=== PATIENT | male | born 1940 | race Caucasian/White ===

== ENCOUNTER 2016-09-16 19:29 | Emergency (ER) | payer OTHER ==
[~2016-09-16] VITALS: Ht 180.3 cm; Wt 81.1 kg
[~2016-09-16 19:29] MED LIST: ASPIRIN E.C.81 M1 PO; ATACAND8 MG PO; BLACK CHERRY CONCENT; Ginkgo Biloba PO; KOREAN PANAX GINSENG; Saw Palmetto PO; THERAGRAN1 TABLET PO; ZYLOPRIM100 MG PO
[2016-09-16 20:47] LABS: HEMATOCRIT 36.5 % (38.0-50.0); MCH 32.1 PG (29.0-34.0); MCHC 35.6 G/DL (30.0-36.0); MCV 90.1 FL (86-99); MEAN PLAT.VOLUME 9.1 uM^3 (9.0-12.4); PLATELET COUNT 159 K/uL (156-360); RBC DIS.WIDTH-CV 12.9 % (11.8-14.6); RBC DIS.WIDTH-SD 42.6 % (39-53); RED BLOOD COUNT 4.05 M/uL (4.00-5.50); WHITE BLOOD COUNT 15.4 K/uL (4.1-10.2)
[2016-09-16 21:11] LABS: CHLORIDE 109 mEq/L (99-109); POTASSIUM 4.5 mEq/L (3.7-5.4); SODIUM 137 mEq/L (136-147)
[2016-09-16 21:13] LABS: GLUCOSE 143 mg/dL (70-99)
[2016-09-16 21:15] LABS: ANION GAP 11 MEQ/L (2-14); TOTAL BILIRUBIN 0.7 mg/dL (0.0-1.0)
[2016-09-16 21:17] LABS: ALKALINE PHOSPHATASE 52 IU/L (3-129); GFR ESTIMATE (CALCULATED) 33 mL/min/
[2016-09-16 21:18] LABS: UREA NITROGEN (BUN) 21 mg/dL (9-23)
[2016-09-17] MEDS ORDERED: PERCOCET 5/31 TABLET PO (00:54)
[2016-09-17] MEDS ORDERED: PROVENTIL HFA6.7 GM IH (00:54)
[2016-09-17 01:00] VITALS: BP 136/83
== END 2016-09-17 01:01 | disposition home or self-care (01) ==
LOC: EME 19:29
DX: S22.41XA Multiple fractures of ribs, right side, initial encounter for closed fracture (principal); S50.811A Abrasion of right forearm, initial encounter; W18.39XA Other fall on same level, initial encounter; W22.09XA Striking against other stationary object, initial encounter; Y93.H9 Activity, other involving exterior property and land maintenance, building and construction; I10 Essential (primary) hypertension
CPT/HCPCS: 71101; 74176; 80053; 85027; 99281; 99285; J2270; J2405; J7030